=== PATIENT | male | born 1970 | race Caucasian/White ===

== ENCOUNTER 2019-10-26 22:22 | Emergency (ER) | payer OTHER ==
[~2019-10-26] VITALS: Ht 172.7 cm; Wt 111.1 kg
[2019-10-27] MEDS ORDERED: NAPROSYN500 MG PO (02:02)
[2019-10-27] MEDS ORDERED: NORFLEX100 MG PO (02:02)
[2019-10-27] MEDS ORDERED: NORCO 5-325 TA1 EAC1 PO (02:02)
[2019-10-27 02:06] VITALS: BP 143/93
--- NOTE | 2019-10-27 13:54 | EKG ---
[place] [address] [facility] [place] [address] ELECTROCARDIOGRAM REPORT Name: DELIA POLLOCK Room #: [id number] Admission: 10/26/19 Attend Phys: Discharge: 10/27/19 Date of : 74 Report #: [id number] THIS REPORT FOR: //name// [facility] ED Test Date: 2019-10-26 Test Time: 23:24:06 Pat Name: DELIA POLLOCK Department: Room: Gender: M Van Driver: avinash : 1970 Requested By: Shabbir Randle Order Number: [id number] MD: Jerry Gill Measurements Intervals [place] Rate: 77 P: 44 SD: 176 QRS: -7 QRSD: 103 T: 63 QT: 401 QTc: 454 Interpretive Statements Sinus rhythm No previous ECG available for comparison Electronically Signed On 10-27-2019 13:54:04 [employer]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
== END 2019-10-27 02:08 | disposition left against medical advice (07) ==
LOC: ER 22:22
DX: M54.2 Cervicalgia (principal); M54.9 Dorsalgia, unspecified; G89.29 Other chronic pain; F17.210 Nicotine dependence, cigarettes, uncomplicated